=== PATIENT | male | born 1940 | race Hispanic/Latino ===

== ENCOUNTER → 2017-06-04 | Outpatient (CLI) | payer MEDICARE | END | disposition home or self-care (01) | LOC: RAH 10:57 | PROVIDERS: ATTEND Family Medicine | DX: R13.10 Dysphagia, unspecified (principal); I69.30 Unspecified sequelae of cerebral infarction | CPT/HCPCS: 74230; 92611; G8996; G8997; G8998 ==

== ENCOUNTER 2017-08-01 22:19 | Emergency (ER) | payer MEDICARE ==
[2017-08-01] MEDS ORDERED: TETANUS/DIPHTHERIA TOXOID [ADULT] 0.5 ML VIAL IM ONE (22:32)
[2017-08-01] MEDS ORDERED: ACETAMINOPHEN 325 MG TAB ONE (22:32)
[2017-08-01] MEDS ORDERED: LIDOCAINE HCL 1% 20 ML VIAL ONE (22:32)
== END 2017-08-02 00:52 | disposition home or self-care (01) ==
LOC: EDH 22:19
DX: S01.111A Laceration without foreign body of right eyelid and periocular area, initial encounter (principal); S80.02XA Contusion of left knee, initial encounter; I10 Essential (primary) hypertension; Z86.73 Personal history of transient ischemic attack (TIA), and cerebral infarction without residual deficits; Z98.890 Other specified postprocedural states; W06.XXXA Fall from bed, initial encounter; Y93.89 Activity, other specified; Y92.89 Other specified places as the place of occurrence of the external cause; Y99.8 Other external cause status
CPT/HCPCS: 12052; 70450; 72170; 73562; 90471; 90714

== ENCOUNTER 2020-07-15 14:56 | Inpatient (IN) | payer OTHER, MEDICARE ==
[~2020-07-15] VITALS: Ht 160 cm; Wt 44.0 kg
[2020-07-15 15:53] LABS: ABG BASE EXCESS 5.1 mmol/L (-2.0-3.0); ABG OXYGEN SATURATION 95.4 % (95.0-99.0); ABG PCO2 40 mmHg (35-48)
[2020-07-15 16:19] LABS: BASOPHILS % (AUTO) 0.6 % (0.0-5.0); EOSINOPHILS % (AUTO) 0.6 % (0.0-8.0); HEMATOCRIT 39.1 % (42-54); LYMPHOCYTES % (AUTO) 7.6 % (21.0-51.0); MEAN CORPUSCULAR HEMOGLOBIN 31.5 pg (27.0-33.0); MEAN CORPUSCULAR HGB CONC 32.2 g/dL (32.0-36.0); MEAN CORPUSCULAR VOLUME 97.8 fL (79-99); MONOCYTES % (AUTO) 4.6 % (3.0-13.0); NEUTROPHILS % (AUTO) 86.4 % (40.0-77.0); PLATELET COUNT (AUTO) 309 K/uL (130-400); RED CELL DISTRIBUTION WIDTH 12.9 % (11.0-15.5); WHITE BLOOD COUNT (AUTO) 9.3 K/uL (4.8-10.8)
[2020-07-15 16:27] LABS: CREATININE 0.6 mg/dL (0.5-1.5); POTASSIUM 3.6 mmol/L (3.5-5.1)
[2020-07-15 16:36] LABS: ALBUMIN 3.2 g/dL (3.5-5.0); BILIRUBIN,TOTAL 0.3 mg/dL (0.2-1.0); TOTAL PROTEIN, SERUM 8.3 g/dL (6.0-8.3)
[2020-07-15 16:46] LABS: B-TYPE NATRIURETIC PEPTIDE 81 pg/mL (0-100)
[2020-07-15] MEDS ORDERED: LEVOFLOXACIN 500 MG/D5W 100 ML 100 ML ONE (17:25)
[2020-07-15] MEDS ORDERED: IPRATROPIUM/ALBUTEROL SULFATE 3 ML SOLUTION IH ONE (17:28)
[2020-07-15] MEDS ORDERED: ONDANSETRON 4MG INJ IV PRN (17:45)
[2020-07-15] MEDS: 0.9%NACL 1000ML 1,000 ML IV SCH (17:45)
[2020-07-15] MEDS ORDERED: ACETAMINOPHEN 325 MG TAB PO PRN ×2 (17:45)
[2020-07-15] MEDS ORDERED: ONDANSETRON 4MG INJ ONE (17:59)
[2020-07-15] MEDS: IPRATROPIUM/ALBUTEROL SULFATE 3 ML SOLUTION IH SCH ×2 (18:00→22:05)
[2020-07-15 18:09] LABS: HEMOGLOBIN A1C 5.2 % (4.0-6.0)
[2020-07-15] MEDS ORDERED: 0.9%NACL 1000ML 1,000 ML IV ONE (18:49)
[2020-07-15] MEDS ORDERED: CLINDAMYCIN IVPB 300MG/50ML 50 ML IV ONE (22:09)
[2020-07-15] MEDS: [UNRECOGNIZED DRUG - REMARK] MISC SCH (23:00)
[2020-07-16 00:05] VITALS: BP 120/67
[2020-07-16] MEDS: [UNRECOGNIZED DRUG - REMARK] MISC SCH ×7 (00:51→23:00)
[2020-07-16] MEDS: FAMOTIDINE 20MG VIAL IV SCH ×3 (00:52→21:55)
[2020-07-16] MEDS ORDERED: GUAIFENESIN-CODEINE 5 ML SYRUP PO PRN (02:00)
[2020-07-16] MEDS: IPRATROPIUM/ALBUTEROL SULFATE 3 ML SOLUTION IH SCH ×6 (02:08→21:28)
[2020-07-16 04:25] VITALS: BP 123/66
[2020-07-16 05:41] LABS: BASOPHILS % (AUTO) 0.4 % (0.0-5.0); EOSINOPHILS % (AUTO) 0.3 % (0.0-8.0); HEMATOCRIT 34.1 % (42-54); LYMPHOCYTES % (AUTO) 5.5 % (21.0-51.0); MEAN CORPUSCULAR HEMOGLOBIN 31.3 pg (27.0-33.0); MEAN CORPUSCULAR HGB CONC 32.3 g/dL (32.0-36.0); MEAN CORPUSCULAR VOLUME 97.2 fL (79-99); MONOCYTES % (AUTO) 4.1 % (3.0-13.0); NEUTROPHILS % (AUTO) 89.4 % (40.0-77.0); PLATELET COUNT (AUTO) 266 K/uL (130-400); RED BLOOD CELL COUNT(AUTO) 3.51 MIL/uL (4.50-6.20); WHITE BLOOD COUNT (AUTO) 11.5 K/uL (4.8-10.8)
[2020-07-16 06:00] LABS: ALBUMIN 2.6 g/dL (3.5-5.0); BILIRUBIN,TOTAL 0.4 mg/dL (0.2-1.0); CREATININE 0.5 mg/dL (0.5-1.5); POTASSIUM 3.6 mmol/L (3.5-5.1); TOTAL PROTEIN, SERUM 6.8 g/dL (6.0-8.3)
[2020-07-16 07:29] VITALS: BP 136/97
[2020-07-16 11:53] VITALS: BP 108/66
[2020-07-16] MEDS: 0.9%NACL 1000ML 1,000 ML IV SCH (13:41)
[2020-07-16] MEDS: LEVOFLOXACIN 500 MG/D5W 100 ML 100 ML IV SCH (17:52)
[2020-07-16 18:12] VITALS: BP 130/71
[2020-07-16 19:00] VITALS: BP 135/68
[2020-07-16] MEDS: CLINDAMYCIN IVPB 300MG/50ML 50 ML IV SCH (19:52)
[2020-07-17] VITALS (7 sets, daily range): BP systolic 100–185; BP diastolic 51–92
[2020-07-17] MEDS: CLINDAMYCIN IVPB 300MG/50ML 50 ML IV SCH ×4 (00:34→18:46)
[2020-07-17] MEDS ORDERED: LISI5TAB21 PO (02:44)
[2020-07-17] MEDS ORDERED: SENN8.6T32 PO (02:47)
[2020-07-17] MEDS ORDERED: QUET25TA36 PO (02:47)
[2020-07-17] MEDS ORDERED: PANT40GR PO (02:47)
[2020-07-17] MEDS: [UNRECOGNIZED DRUG - REMARK] MISC SCH ×6 (03:00→23:00)
[2020-07-17 05:01] LABS: EOSINOPHILS % (AUTO) 3.2 % (0.0-8.0); HEMATOCRIT 32.1 % (42-54); LYMPHOCYTES % (AUTO) 13.8 % (21.0-51.0); MEAN CORPUSCULAR HGB CONC 31.2 g/dL (32.0-36.0); MEAN CORPUSCULAR VOLUME 99.4 fL (79-99); MONOCYTES % (AUTO) 9.1 % (3.0-13.0); NEUTROPHILS % (AUTO) 72.5 % (40.0-77.0); PLATELET COUNT (AUTO) 246 K/uL (130-400); RED BLOOD CELL COUNT(AUTO) 3.23 MIL/uL (4.50-6.20); RED CELL DISTRIBUTION WIDTH 12.8 % (11.0-15.5); WHITE BLOOD COUNT (AUTO) 5.1 K/uL (4.8-10.8)
[2020-07-17 05:17] LABS: ALBUMIN 2.5 g/dL (3.5-5.0); BILIRUBIN,TOTAL 0.4 mg/dL (0.2-1.0); CREATININE 0.5 mg/dL (0.5-1.5); POTASSIUM 3.4 mmol/L (3.5-5.1); TOTAL PROTEIN, SERUM 6.6 g/dL (6.0-8.3)
[2020-07-17] MEDS: 0.9%NACL 1000ML 1,000 ML IV SCH (07:57)
[2020-07-17] MEDS: IPRATROPIUM/ALBUTEROL SULFATE 3 ML SOLUTION IH SCH ×4 (09:52→22:00)
[2020-07-17] MEDS: FAMOTIDINE 20MG VIAL IV SCH ×2 (10:27→22:04)
[2020-07-17] MEDS: LEVOFLOXACIN 500 MG/D5W 100 ML 100 ML IV SCH (18:46)
[2020-07-18] VITALS (7 sets, daily range): BP systolic 97–134; BP diastolic 52–66
[2020-07-18] MEDS: CLINDAMYCIN IVPB 300MG/50ML 50 ML IV SCH ×3 (00:44→12:38)
[2020-07-18] MEDS: IPRATROPIUM/ALBUTEROL SULFATE 3 ML SOLUTION IH SCH ×6 (01:12→22:00)
[2020-07-18 05:07] LABS: BASOPHILS % (AUTO) 0.7 % (0.0-5.0); EOSINOPHILS % (AUTO) 2.3 % (0.0-8.0); HEMATOCRIT 27.6 % (42-54); LYMPHOCYTES % (AUTO) 16.3 % (21.0-51.0); MEAN CORPUSCULAR HEMOGLOBIN 31.5 pg (27.0-33.0); MEAN CORPUSCULAR VOLUME 95.5 fL (79-99); MONOCYTES % (AUTO) 7.9 % (3.0-13.0); NEUTROPHILS % (AUTO) 72.4 % (40.0-77.0); PLATELET COUNT (AUTO) 231 K/uL (130-400); RED BLOOD CELL COUNT(AUTO) 2.89 MIL/uL (4.50-6.20); RED CELL DISTRIBUTION WIDTH 12.6 % (11.0-15.5); WHITE BLOOD COUNT (AUTO) 5.6 K/uL (4.8-10.8)
[2020-07-18 05:22] LABS: ALBUMIN 2.3 g/dL (3.5-5.0); BILIRUBIN,TOTAL 0.3 mg/dL (0.2-1.0); CREATININE 0.5 mg/dL (0.5-1.5); POTASSIUM 3.6 mmol/L (3.5-5.1); TOTAL PROTEIN, SERUM 5.8 g/dL (6.0-8.3)
[2020-07-18] MEDS: 0.9%NACL 1000ML 1,000 ML IV SCH (05:45)
[2020-07-18 09:05] LABS: % IRON SATURATION 8.1 % (30-44)
[2020-07-18] MEDS: LISINOPRIL 5 MG TABLET PO SCH (09:07)
[2020-07-18] MEDS: FAMOTIDINE 20MG VIAL IV SCH ×2 (09:07→20:10)
[2020-07-18] MEDS ORDERED: SENNOSIDES 8.6 MG TABLET PO PRN (12:30)
[2020-07-18] MEDS: PANTOPRAZOLE 40 MG TAB DR PO SCH (12:38)
[2020-07-18] MEDS: QUETIAPINE FUMARATE 25 MG TAB PO SCH (12:38)
[2020-07-18] MEDS ORDERED: COMPOUND IV MISC 1 EACH IVSOLN MISC PRN (18:30)
[2020-07-19] MEDS: IPRATROPIUM/ALBUTEROL SULFATE 3 ML SOLUTION IH SCH ×7 (02:00→22:53)
[2020-07-19] MEDS: 0.9%NACL 1000ML 1,000 ML IV SCH ×2 (02:27→23:03)
[2020-07-19 03:31] VITALS: BP 118/53
[2020-07-19 04:44] LABS: BASOPHILS % (AUTO) 0.9 % (0.0-5.0); EOSINOPHILS % (AUTO) 2.5 % (0.0-8.0); HEMATOCRIT 27.9 % (42-54); LYMPHOCYTES % (AUTO) 12.8 % (21.0-51.0); MEAN CORPUSCULAR HGB CONC 34.1 g/dL (32.0-36.0); MEAN CORPUSCULAR VOLUME 93.9 fL (79-99); MONOCYTES % (AUTO) 9.4 % (3.0-13.0); NEUTROPHILS % (AUTO) 73.9 % (40.0-77.0); PLATELET COUNT (AUTO) 225 K/uL (130-400); RED BLOOD CELL COUNT(AUTO) 2.97 MIL/uL (4.50-6.20); RED CELL DISTRIBUTION WIDTH 12.8 % (11.0-15.5); WHITE BLOOD COUNT (AUTO) 4.4 K/uL (4.8-10.8)
[2020-07-19 05:01] LABS: ALBUMIN 2.2 g/dL (3.5-5.0); BILIRUBIN,TOTAL 0.3 mg/dL (0.2-1.0); CREATININE 0.4 mg/dL (0.5-1.5); POTASSIUM 3.8 mmol/L (3.5-5.1); TOTAL PROTEIN, SERUM 5.6 g/dL (6.0-8.3)
[2020-07-19] MEDS: PANTOPRAZOLE 40 MG TAB DR PO SCH (06:02)
[2020-07-19 07:00] VITALS: BP 112/59
[2020-07-19] MEDS: QUETIAPINE FUMARATE 25 MG TAB PO SCH (08:49)
[2020-07-19] MEDS: FAMOTIDINE 20MG VIAL IV SCH ×2 (08:50→21:00)
[2020-07-19] MEDS: LISINOPRIL 5 MG TABLET PO SCH (08:50)
[2020-07-19 11:00] VITALS: BP 98/54
[2020-07-19 16:00] VITALS: BP 110/48
[2020-07-19 18:23] LABS: APPEARANCE,URINE Clear (CLEAR); BILIRUBIN,URINE Negative (NEGATIVE); COLOR,URINE Yellow (YELLOW); GLUCOSE, URINE (UA) Negative (NEGATIVE); KETONES,URINE Negative (NEGATIVE); LEUKOCYTE ESTERASE ,URINE Trace (NEGATIVE); NITRATE,URINE Negative (NEGATIVE); OCCULT BLOOD,URINE Negative (NEGATIVE); PH,URINE 8.5 (5.0-8.0); PROTEIN,URINE Negative (NEGATIVE)
[2020-07-19 18:55] LABS: BACTERIA,URINE Rare /HPF (None Seen); MUCUS,URINE Few LPF (None Seen); RBC,URINE 0-1 /HPF (0-1); SQUAMOUS EPITHELIAL CELL,UR Few /HPF (0-2); WBC,URINE 0-1 /HPF (0-1)
[2020-07-19 19:06] VITALS: BP 94/50
[2020-07-19] MEDS: IRON SUCROSE COMPLEX 100 MG in 0.9%NACL 50ML 50 ML IV SCH (20:00)
[2020-07-19 23:01] VITALS: BP 120/60
[2020-07-20] VITALS (17 sets, daily range): BP systolic 99–123; BP diastolic 47–78
[2020-07-20] MEDS: IPRATROPIUM/ALBUTEROL SULFATE 3 ML SOLUTION IH SCH ×6 (02:00→22:12)
[2020-07-20 06:09] LABS: BASOPHILS % (AUTO) 0.8 % (0.0-5.0); EOSINOPHILS % (AUTO) 4.3 % (0.0-8.0); HEMATOCRIT 28.3 % (42-54); LYMPHOCYTES % (AUTO) 9.1 % (21.0-51.0); MEAN CORPUSCULAR HEMOGLOBIN 31.8 pg (27.0-33.0); MEAN CORPUSCULAR HGB CONC 33.2 g/dL (32.0-36.0); MEAN CORPUSCULAR VOLUME 95.6 fL (79-99); MONOCYTES % (AUTO) 3.8 % (3.0-13.0); NEUTROPHILS % (AUTO) 81.6 % (40.0-77.0); PLATELET COUNT (AUTO) 212 K/uL (130-400); RED BLOOD CELL COUNT(AUTO) 2.96 MIL/uL (4.50-6.20); RED CELL DISTRIBUTION WIDTH 13.1 % (11.0-15.5); WHITE BLOOD COUNT (AUTO) 4.9 K/uL (4.8-10.8)
[2020-07-20 06:18] LABS: CREATININE 0.4 mg/dL (0.5-1.5); MAGNESIUM 2.3 mg/dL (1.80-2.40); POTASSIUM 4.3 mmol/L (3.5-5.1)
[2020-07-20 06:21] LABS: INR 1.06 (0.85-1.15); PROTHROMBIN TIME 11.5 SEC (9.6-11.6)
[2020-07-20] MEDS: PANTOPRAZOLE 40 MG TAB DR PO SCH (08:49)
[2020-07-20] MEDS: FAMOTIDINE 20MG VIAL IV SCH ×2 (08:49→22:17)
[2020-07-20] MEDS: LISINOPRIL 5 MG TABLET PO SCH (08:51)
[2020-07-20] MEDS ORDERED: DEXTROSE 5 % AND 0.9 % NACL 1,000 ML IV SCH (10:45)
[2020-07-20] MEDS ORDERED: PROPOFOL 10 MG/ML 20ML VIAL IV ONE ×2 (12:08→12:19)
[2020-07-20] MEDS ORDERED: EPHEDRINE SULFATE 50 MG/ML AMPULE ONE (12:25)
[2020-07-20] MEDS: IRON SUCROSE COMPLEX 100 MG in 0.9%NACL 50ML 50 ML IV SCH (13:35)
[2020-07-20] MEDS: 0.9%NACL 1000ML 1,000 ML IV SCH (18:57)
[2020-07-21 00:27] VITALS: BP 122/66
[2020-07-21] MEDS: IPRATROPIUM/ALBUTEROL SULFATE 3 ML SOLUTION IH SCH ×5 (02:00→18:27)
[2020-07-21 04:52] LABS: BASOPHILS % (AUTO) 0.9 % (0.0-5.0); EOSINOPHILS % (AUTO) 5.4 % (0.0-8.0); HEMATOCRIT 28.7 % (42-54); LYMPHOCYTES % (AUTO) 19.5 % (21.0-51.0); MEAN CORPUSCULAR HGB CONC 34.1 g/dL (32.0-36.0); MEAN CORPUSCULAR VOLUME 93.8 fL (79-99); MONOCYTES % (AUTO) 10.9 % (3.0-13.0); NEUTROPHILS % (AUTO) 62.7 % (40.0-77.0); PLATELET COUNT (AUTO) 227 K/uL (130-400); RED BLOOD CELL COUNT(AUTO) 3.06 MIL/uL (4.50-6.20); RED CELL DISTRIBUTION WIDTH 13.1 % (11.0-15.5); WHITE BLOOD COUNT (AUTO) 3.5 K/uL (4.8-10.8)
[2020-07-21 04:56] LABS: CREATININE 0.4 mg/dL (0.5-1.5); POTASSIUM 3.5 mmol/L (3.5-5.1)
[2020-07-21 05:53] VITALS: BP 152/72
[2020-07-21] MEDS: FAMOTIDINE 20MG VIAL IV SCH (08:27)
[2020-07-21] MEDS: LISINOPRIL 5 MG TABLET PO SCH (08:28)
[2020-07-21] MEDS: IRON SUCROSE COMPLEX 100 MG in 0.9%NACL 50ML 50 ML IV SCH (08:28)
[2020-07-21 09:03] VITALS: BP 122/66
[2020-07-21] MEDS: 0.9%NACL 1000ML 1,000 ML IV SCH (14:01)
[2020-07-21 14:56] VITALS: BP 117/66
[2020-07-21 19:52] VITALS: BP 120/68
== END 2020-07-21 19:51 | disposition home or self-care (01) | DRG 204 ==
LOC: EDH 14:56 → EDHIP 17:39 → 4BH 23:28
PROVIDERS: ADMIT Internal Medicine; ATTEND Internal Medicine
PROC: 0DB58ZX Excision of Esophagus, Via Natural or Artificial Opening Endoscopic, Diagnostic (ICD-10-PCS; principal; 2020-07-20)
PROC: 0DB68ZX Excision of Stomach, Via Natural or Artificial Opening Endoscopic, Diagnostic (ICD-10-PCS; 2020-07-20)
DX: R06.02 Shortness of breath (principal); E43 Unspecified severe protein-calorie malnutrition; K29.71 Gastritis, unspecified, with bleeding; Z68.1 Body mass index [BMI] 19.9 or less, adult; I69.351 Hemiplegia and hemiparesis following cerebral infarction affecting right dominant side; K29.70 Gastritis, unspecified, without bleeding; I10 Essential (primary) hypertension; K22.70 Barrett's esophagus without dysplasia; F32.9 Major depressive disorder, single episode, unspecified; F41.9 Anxiety disorder, unspecified; D64.9 Anemia, unspecified; D50.9 Iron deficiency anemia, unspecified; R19.5 Other fecal abnormalities; F03.90 Unspecified dementia, unspecified severity, without behavioral disturbance, psychotic disturbance, mood disturbance, and anxiety; K22.8 Other specified diseases of esophagus; Z20.822 Contact with and (suspected) exposure to COVID-19; Z88.0 Allergy status to penicillin; Z74.01 Bed confinement status; Z93.1 Gastrostomy status
CPT/HCPCS: 36415; 36600; 43239; 71045; 80048; 80053; 81001; 82270; 82550; 82607; 82728; 82746; 82803; 82948; 83036; 83540; 83550; 83605; 83735; 83880; 84145; 84484; 85025; 85610; 86738; 86850; 86900; 86901; 87040; 87426; 87449; 87804; 88305; 88342; 92610; 93005; 94640; 94664; A4606; G0378; J1756; J1956; J2405; J2704; J3490; J7030; U0003

== ENCOUNTER 2020-08-06 16:04 | Observation (INO) | payer OTHER, MEDICARE ==
[~2020-08-06] VITALS: Ht 165.1 cm; Wt 59.0 kg
[~2020-08-06 16:04] MED LIST: LISI5TAB21 PO; PANT40GR PO; QUET25TA36 PO; SENN8.6T32 PO
[2020-08-06 17:01] LABS: APPEARANCE,URINE Turbid (CLEAR); BILIRUBIN,URINE Negative (NEGATIVE); COLOR,URINE Yellow (YELLOW); GLUCOSE, URINE (UA) Negative (NEGATIVE); KETONES,URINE Negative (NEGATIVE); LEUKOCYTE ESTERASE ,URINE Trace (NEGATIVE); NITRATE,URINE Negative (NEGATIVE); OCCULT BLOOD,URINE Negative (NEGATIVE); PH,URINE >=9.0 (5.0-8.0); PROTEIN,URINE POS 1+ mg/dL (NEGATIVE)
[2020-08-06 17:11] LABS: EOSINOPHILS % (AUTO) 0.5 % (0.0-8.0); HEMATOCRIT 43.6 % (42-54); LYMPHOCYTES % (AUTO) 6.4 % (21.0-51.0); MEAN CORPUSCULAR HGB CONC 32.1 g/dL (32.0-36.0); MEAN CORPUSCULAR VOLUME 99.5 fL (79-99); MONOCYTES % (AUTO) 4.9 % (3.0-13.0); NEUTROPHILS % (AUTO) 86.9 % (40.0-77.0); PLATELET COUNT (AUTO) 287 K/uL (130-400); RED BLOOD CELL COUNT(AUTO) 4.38 MIL/uL (4.50-6.20); RED CELL DISTRIBUTION WIDTH 13.6 % (11.0-15.5); WHITE BLOOD COUNT (AUTO) 7.3 K/uL (4.8-10.8)
[2020-08-06 17:15] LABS: AMORPHOUS SEDIMENT,UR Many /LPF (None Seen); BACTERIA,URINE Rare /HPF (None Seen); MUCUS,URINE Rare LPF (None Seen); RBC,URINE 0-1 /HPF (0-1); SQUAMOUS EPITHELIAL CELL,UR 0-2 /HPF (0-2); WBC,URINE 0-1 /HPF (0-1)
[2020-08-06 17:24] LABS: CREATININE 0.8 mg/dL (0.5-1.5); POTASSIUM 3.4 mmol/L (3.5-5.1)
[2020-08-06 17:25] LABS: INR 1.2 (0.85-1.15); PROTHROMBIN TIME 12.9 SEC (9.6-11.6)
[2020-08-06 17:27] LABS: PARTIAL THROMBOPLASTIN TIME 30.4 SEC (26.3-35.5)
[2020-08-06 17:29] LABS: ALBUMIN 3.7 g/dL (3.5-5.0); BILIRUBIN,TOTAL 0.5 mg/dL (0.2-1.0)
[2020-08-06 17:53] LABS: B-TYPE NATRIURETIC PEPTIDE 164 pg/mL (0-100)
[2020-08-06] MEDS ORDERED: BISACODYL 10 MG SUPP.RECT RC ONE (18:05)
[2020-08-06] MEDS ORDERED: ACETAMINOPHEN 650 MG/20.3 ML UDCUP PEG PRN ×2 (19:00)
[2020-08-06] MEDS ORDERED: LACTATED RINGERS 1000ML 1,000 ML IV SCH (19:00)
[2020-08-06] MEDS ORDERED: NITROGLYCERIN 0.4 MG SL TAB SL PRN (19:00)
[2020-08-06] MEDS ORDERED: ONDANSETRON 4MG INJ IV PRN (19:00)
[2020-08-06] MEDS ORDERED: LACTATED RINGERS 1000ML IV SCH (19:00)
[2020-08-06] MEDS ORDERED: LACTULOSE 20 GM/30 ML UDCUP PEG PRN (19:15)
[2020-08-06] MEDS ORDERED: POTASSIUM CHLORIDE 10% ELIXIR 20 MEQ/15 ML UDCUP PEG SCH (19:30)
[2020-08-06] MEDS ORDERED: PERMETHRIN LOTION 1% 59ML BOTTLE TP SCH (20:45)
[2020-08-06] MEDS: FAMOTIDINE 20MG VIAL IV SCH (21:00)
[2020-08-06] MEDS ORDERED: POTASSIUM CHLORIDE 10% ELIXIR 20 MEQ/15 ML UDCUP ONE (21:35)
[2020-08-06] MEDS ORDERED: FAMOTIDINE 20MG VIAL IV ONE (21:36)
[2020-08-06] MEDS ORDERED: LACTATED RINGERS 1000ML 1,000 ML IV ONE (21:36)
[2020-08-06 21:55] VITALS: BP 125/69
[2020-08-06] MEDS: POLYETHYLENE GLYCOL 3350 17 GM POWD.PACK PEG SCH (23:27)
[2020-08-06 23:28] LABS: CREATINE KINASE, TOTAL 31 U/L (21-232); MYOGLOBIN 28 ng/mL (10-92); TROPONIN I < 0.04 ng/mL (0.00-0.06)
[2020-08-07] VITALS: BP 125/69
[2020-08-07 02:50] LABS: BASOPHILS % (AUTO) 0.6 % (0.0-5.0); EOSINOPHILS % (AUTO) 0.2 % (0.0-8.0); HEMATOCRIT 34.8 % (42-54); MEAN CORPUSCULAR HEMOGLOBIN 31.5 pg (27.0-33.0); MEAN CORPUSCULAR HGB CONC 32.8 g/dL (32.0-36.0); MEAN CORPUSCULAR VOLUME 96.1 fL (79-99); MONOCYTES % (AUTO) 5.1 % (3.0-13.0); NEUTROPHILS % (AUTO) 87.9 % (40.0-77.0); PLATELET COUNT (AUTO) 226 K/uL (130-400); RED BLOOD CELL COUNT(AUTO) 3.62 MIL/uL (4.50-6.20); RED CELL DISTRIBUTION WIDTH 13.8 % (11.0-15.5)
[2020-08-07 03:07] LABS: ALBUMIN 2.8 g/dL (3.5-5.0); BILIRUBIN,TOTAL 0.7 mg/dL (0.2-1.0); CREATININE 0.6 mg/dL (0.5-1.5); MAGNESIUM 2.1 mg/dL (1.80-2.40); POTASSIUM 3.8 mmol/L (3.5-5.1); TOTAL PROTEIN, SERUM 6.6 g/dL (6.0-8.3)
[2020-08-07 04:00] VITALS: BP 92/57
[2020-08-07 08:57] VITALS: BP 99/49
[2020-08-07] MEDS: FAMOTIDINE 20MG VIAL IV SCH ×2 (09:34→22:08)
[2020-08-07] MEDS: ENOXAPARIN SODIUM 30 MG/0.3 ML SQ SCH (09:35)
[2020-08-07] MEDS: POLYETHYLENE GLYCOL 3350 17 GM POWD.PACK PEG SCH (09:35)
[2020-08-07] MEDS ORDERED: LACTATED RINGERS 1000ML 1,000 ML IV SCH (11:00)
[2020-08-07 11:53] VITALS: BP 92/46
[2020-08-07 15:42] VITALS: BP 115/48
[2020-08-07 20:07] VITALS: BP 122/68
[2020-08-07] MEDS ORDERED: SENNOSIDES 8.6 MG TABLET PO PRN (20:30)
[2020-08-07] MEDS ORDERED: LACTULOSE 20 GM/30 ML UDCUP PO SCH (20:30)
[2020-08-08] VITALS: BP 122/52
[2020-08-08 04:19] VITALS: BP 128/59
[2020-08-08 05:10] LABS: MEAN CORPUSCULAR HEMOGLOBIN 31.5 pg (27.0-33.0); MEAN CORPUSCULAR HGB CONC 32.5 g/dL (32.0-36.0); RED BLOOD CELL COUNT(AUTO) 3.3 MIL/uL (4.50-6.20); RED CELL DISTRIBUTION WIDTH 13.3 % (11.0-15.5); RETICULOCYTE % (AUTO) 1.18 % (0.42-2.23)
[2020-08-08 05:28] LABS: % IRON SATURATION 12.2 % (30-44)
[2020-08-08 05:33] LABS: ALBUMIN 2.6 g/dL (3.5-5.0); BILIRUBIN,TOTAL 0.7 mg/dL (0.2-1.0); CREATININE 0.2 mg/dL (0.5-1.5); POTASSIUM 3.2 mmol/L (3.5-5.1); THYROID STIMULATING HORMONE 1.55 uIU/mL (0.36-3.74); TOTAL PROTEIN, SERUM 6.2 g/dL (6.0-8.3)
[2020-08-08 08:51] VITALS: BP 128/56
[2020-08-08] MEDS ORDERED: PANTOPRAZOLE 40 MG TAB DR PO SCH (09:00)
[2020-08-08] MEDS ORDERED: LISINOPRIL 5 MG TABLET PO SCH (09:00)
[2020-08-08] MEDS ORDERED: QUETIAPINE FUMARATE 25 MG TAB PO SCH (09:00)
[2020-08-08] MEDS: FAMOTIDINE 20MG VIAL IV SCH ×2 (11:02→21:39)
[2020-08-08] MEDS: POLYETHYLENE GLYCOL 3350 17 GM POWD.PACK PEG SCH (11:03)
[2020-08-08] MEDS: ENOXAPARIN SODIUM 30 MG/0.3 ML SQ SCH (11:05)
[2020-08-08 11:59] VITALS: BP 114/55
[2020-08-08] MEDS ORDERED: GLYCERIN ADULT SUPP.RECT RC SCH (15:30)
[2020-08-08] MEDS ORDERED: POTASSIUM CHLORIDE 10% ELIXIR 20 MEQ/15 ML UDCUP PO SCH (16:30)
[2020-08-08] MEDS ORDERED: LACT10SO9 PO (16:40)
[2020-08-08 16:46] VITALS: BP 133/69
[2020-08-08 20:04] VITALS: BP 139/66
== END 2020-08-08 23:08 | disposition home or self-care (01) ==
LOC: EDH 16:04 → EDHIP 18:41 → 3CH 20:42
PROVIDERS: ADMIT Internal Medicine; ATTEND Internal Medicine
DX: K56.41 Fecal impaction (principal); Z20.822 Contact with and (suspected) exposure to COVID-19; E86.0 Dehydration; R11.2 Nausea with vomiting, unspecified; I69.351 Hemiplegia and hemiparesis following cerebral infarction affecting right dominant side; F41.9 Anxiety disorder, unspecified; F32.9 Major depressive disorder, single episode, unspecified; I10 Essential (primary) hypertension; F03.90 Unspecified dementia, unspecified severity, without behavioral disturbance, psychotic disturbance, mood disturbance, and anxiety; D64.9 Anemia, unspecified; E87.6 Hypokalemia; E87.2 Acidosis; K92.2 Gastrointestinal hemorrhage, unspecified; R64 Cachexia; Z74.01 Bed confinement status; Z79.899 Other long term (current) drug therapy
CPT/HCPCS: 36415 ×3; 71045; 74018 ×2; 74176; 80053 ×3; 81001; 82550 ×2; 83540; 83550; 83605 ×4; 83690; 83735 ×2; 83874; 83880; 84443; 84484 ×2; 85025 ×2; 85027; 85045; 85610; 85730; 87426; 93005; 96361; 96372 ×2; 96374; 96376 ×2; 97161; 97530 ×2; 99285; G0378 ×51; G8979; G8980; G8983; J1650 ×2; J3490 ×5; J7120 ×3; U0003

== ENCOUNTER 2020-08-12 16:28 | Emergency (ER) | payer OTHER, MEDICARE ==
[~2020-08-12 16:28] MED LIST changes: +LACT10SO9 PO; +LISI-809 PO; -LISI5TAB21 PO; +QUET25TA34 PO; -QUET25TA36 PO
[2020-08-12] MEDS ORDERED: ONDANSETRON HCL 4 MG/2 ML VIAL ONE (16:54)
[2020-08-12 17:08] LABS: BASOPHILS % (AUTO) 0.7 % (0.0-5.0); EOSINOPHILS % (AUTO) 0.3 % (0.0-8.0); HEMATOCRIT 38.1 % (42-54); LYMPHOCYTES % (AUTO) 5.5 % (21.0-51.0); MEAN CORPUSCULAR HEMOGLOBIN 31.6 pg (27.0-33.0); MEAN CORPUSCULAR HGB CONC 32.5 g/dL (32.0-36.0); MEAN CORPUSCULAR VOLUME 97.2 fL (79-99); MONOCYTES % (AUTO) 6.6 % (3.0-13.0); NEUTROPHILS % (AUTO) 86.6 % (40.0-77.0); PLATELET COUNT (AUTO) 281 K/uL (130-400); RED BLOOD CELL COUNT(AUTO) 3.92 MIL/uL (4.50-6.20); RED CELL DISTRIBUTION WIDTH 13.7 % (11.0-15.5); WHITE BLOOD COUNT (AUTO) 6.9 K/uL (4.8-10.8)
[2020-08-12 17:21] LABS: CREATININE 0.7 mg/dL (0.5-1.5); POTASSIUM 3.9 mmol/L (3.5-5.1)
[2020-08-12 17:31] LABS: ALBUMIN 2.9 g/dL (3.5-5.0); BILIRUBIN,TOTAL 0.3 mg/dL (0.2-1.0); TOTAL PROTEIN, SERUM 7.2 g/dL (6.0-8.3)
[2020-08-12 17:39] LABS: B-TYPE NATRIURETIC PEPTIDE 87 pg/mL (0-100)
[2020-08-12] MEDS ORDERED: LACTULOSE 20 GM/30 ML UDCUP ONE (18:00)
[2020-08-12] MEDS ORDERED: BISACODYL 10 MG SUPP.RECT RC ONE (18:11)
== END 2020-08-13 02:09 | disposition home or self-care (01) ==
LOC: EDH 16:28
DX: A08.4 Viral intestinal infection, unspecified (principal); K59.00 Constipation, unspecified; Z20.822 Contact with and (suspected) exposure to COVID-19; F41.9 Anxiety disorder, unspecified; F32.9 Major depressive disorder, single episode, unspecified; I10 Essential (primary) hypertension; Z88.0 Allergy status to penicillin
CPT/HCPCS: 36415; 71045; 74176; 80053; 82550; 83605; 83690; 83880; 84484; 85025; 87040 ×2; 87426; 93005; 96374; 99285; J2405; U0003

== ENCOUNTER 2020-10-22 14:21 | Emergency (ER) | payer OTHER, MEDICARE ==
[~2020-10-22] VITALS: Ht 157.5 cm; Wt 59.0 kg
[2020-10-22 14:31] VITALS: BP 121/69
[2020-10-22] MEDS ORDERED: BISACODYL 10 MG SUPP.RECT RC ONE (15:30)
[2020-10-22 18:54] VITALS: BP 114/65
[2020-10-22 20:38] VITALS: BP 142/72
== END 2020-10-23 05:33 | disposition home or self-care (01) ==
LOC: EDH 14:21
DX: K59.00 Constipation, unspecified (principal); G81.91 Hemiplegia, unspecified affecting right dominant side; R47.01 Aphasia; Z86.73 Personal history of transient ischemic attack (TIA), and cerebral infarction without residual deficits; Z79.899 Other long term (current) drug therapy; Z88.0 Allergy status to penicillin
CPT/HCPCS: 74018